=== PATIENT | female | born 1975 | race Caucasian/White ===

== ENCOUNTER 2016-10-11 19:20 | Observation (INO) | payer OTHER ==
[~2016-10-11] VITALS: Ht 165.1 cm; Wt 66.0 kg
[~2016-10-11 19:20] MED LIST: FLUO20CA12 PO; HYDR-3801 PO; QUET1TAB10 PO; QUET1TAB8 PO; SENN1TAB PO; TYLE325T PO
[2016-10-11 19:23] VITALS: BP 145/77; PULSE 87; RESP 16; TEMP 98.8; O2SAT 97
[2016-10-11] MEDS ORDERED: HALOPERIDOL LACTATE 5 MG/ML AMP IM ONE (20:00)
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
[2016-10-11 20:47] VITALS: BP 122/76; PULSE 79; RESP 16; O2SAT 96
[2016-10-11] MEDS ORDERED: SENNOSIDES 8.6 MG TAB PO PRN (21:15)
[2016-10-11] MEDS ORDERED: MAGNESIUM HYDROXIDE SUSP 30 ML CUP PO PRN (21:15)
[2016-10-11] MEDS ORDERED: NALOXONE HCL 0.4 MG/ML AMP IV PRN (21:15)
[2016-10-11] MEDS ORDERED: HALOPERIDOL LACTATE 5 MG/ML AMP IM PRN (21:15)
[2016-10-11] MEDS ORDERED: SODIUM CHLORIDE 0.9% FLUSH 10 ML FLUSH IV FLUSH PRN (21:15)
[2016-10-11] MEDS ORDERED: BISACODYL 10 MG SUPP RECTAL PRN (21:15)
[2016-10-11] MEDS ORDERED: LACTULOSE SYRUP 20 GM/30 ML CUP PO PRN (21:15)
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
[2016-10-11] MEDS: hydrALAZINE HCL 10 MG TAB PO SCH (23:01)
[2016-10-12 00:33] VITALS: BP 148/81; PULSE 87; RESP 18; TEMP 98.1; O2SAT 98
[2016-10-12 04:24] VITALS: BP 139/80; PULSE 87; RESP 18; TEMP 98; O2SAT 98
[2016-10-12] MEDS: hydrALAZINE HCL 10 MG TAB PO SCH ×3 (05:42→17:29)
[2016-10-12 07:34] VITALS: BP 118/80; PULSE 66; RESP 18; TEMP 98.2; O2SAT 98
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
[2016-10-12] MEDS: SODIUM CHLORIDE 0.9% FLUSH 10 ML FLUSH IV FLUSH SCH ×2 (08:18→20:08)
[2016-10-12] MEDS: DOCUSATE SODIUM 50 MG/SENNA 8.6 MG TAB PO SCH ×2 (08:19→20:12)
[2016-10-12] MEDS: QUEtiapine FUMARATE 100 MG TAB PO SCH ×2 (08:19→15:17)
[2016-10-12] MEDS: FLUoxetine HCL 20 MG CAP PO SCH (08:19)
[2016-10-12] MEDS ORDERED: DOCUSATE SODIUM 50 MG/SENNA 8.6 MG TAB PO SCH (09:00)
[2016-10-12 11:07] LABS: BICARBONATE 25.1 MEQ/L (21.0-32.0); POTASSIUM 4.4 MEQ/L (3.5-5.1)
[2016-10-12 11:54] VITALS: BP 121/71; PULSE 82; RESP 16; TEMP 98.7; O2SAT 98
[2016-10-12] MEDS: ACETAMINOPHEN 325 MG TAB PO PRN ×2 (12:21→20:12)
[2016-10-12 15:51] VITALS: BP 126/72; PULSE 77; RESP 18; TEMP 98.6; O2SAT 98
[2016-10-12 20:01] VITALS: BP 130/77; PULSE 76; RESP 17; TEMP 98.2; O2SAT 97
[2016-10-12] MEDS ORDERED: QUEtiapine FUMARATE 300 MG TAB PO SCH (21:00)
[2016-10-13] MEDS: hydrALAZINE HCL 10 MG TAB PO SCH ×2 (00:11→05:14)
[2016-10-13 01:28] VITALS: BP 138/75; PULSE 74; RESP 16; TEMP 98.6; O2SAT 97
[2016-10-13 04:24] VITALS: BP 122/70; PULSE 67; RESP 16; TEMP 98.2; O2SAT 98
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
--- NOTE | 2016-10-13 07:44 | HHI.DCPOC ---
Discharge Care Plan Diagnosis: (1) Impaired cognition (2) Traumatic brain injury Goals to Promote Your Health * To prevent worsening of your condition and complications * To maintain your health at the optimal level Directions to Meet Your Goals Take your medications as prescribed Follow your dietary instruction Follow activity as directed Keep your appointments as scheduled Take your immunizations and boosters as scheduled If your symptoms worsen call your PCP, if no PCP go to Urgent Care Center or Emergency Room Smoking is Dangerous to Your Health. Avoid second hand smoke Call the 24-hour hour crisis hotline for domestic abuse at [place] Oct 13, 2016 07:44
[2016-10-13] MEDS: QUEtiapine FUMARATE 100 MG TAB PO SCH (08:39)
[2016-10-13] MEDS: DOCUSATE SODIUM 50 MG/SENNA 8.6 MG TAB PO SCH (08:40)
[2016-10-13] MEDS: SODIUM CHLORIDE 0.9% FLUSH 10 ML FLUSH IV FLUSH SCH (08:40)
[2016-10-13] MEDS: FLUoxetine HCL 20 MG CAP PO SCH (08:40)
[2016-10-13] MEDS: ACETAMINOPHEN 325 MG TAB PO PRN (08:45)
[2016-10-13 08:46] VITALS: BP 145/97; PULSE 87; RESP 18; TEMP 97.4; O2SAT 95
[2016-11-13] MEDS ORDERED: SERO25TA PO (12:58)
[2016-11-13] MEDS ORDERED: MELA1TAB18 PO (12:58)
== END 2016-10-13 11:33 | disposition home or self-care (01) ==
LOC: NEPC 19:20 → NEDA 20:26 → NEPGCP 22:15
PROVIDERS: ADMIT Hospitalist; ATTEND Hospitalist
DX: R41.89 Other symptoms and signs involving cognitive functions and awareness (principal); S06.9X9D Unspecified intracranial injury with loss of consciousness of unspecified duration, subsequent encounter; S42.001D Fracture of unspecified part of right clavicle, subsequent encounter for fracture with routine healing; R26.9 Unspecified abnormalities of gait and mobility
CPT/HCPCS: 29125; 80048; 96374; 96376; 99285; G0378; J1630

== ENCOUNTER 2017-05-30 10:10 | Emergency (ER) | payer MEDICAID, OTHER ==
[~2017-05-30] VITALS: Ht 162.6 cm; Wt 63.5 kg
[~2017-05-30 10:10] MED LIST changes: -FLUO20CA12 PO; +MELA1TAB18 PO; -QUET1TAB10 PO; -QUET1TAB8 PO; -SENN1TAB PO; +SERO25TA PO
[2017-05-30 10:31] VITALS: BP 164/88; PULSE 70; RESP 16; TEMP 98.6; O2SAT 100
[2017-05-30] MEDS ORDERED: GABA300C5 PO ×2 (11:14→11:38)
[2017-05-30] MEDS ORDERED: SERO100T PO (11:14)
[2017-05-30] MEDS ORDERED: PROP60TA PO ×2 (11:14→11:38)
[2017-05-30] MEDS ORDERED: SERO200T PO (11:14)
[2017-05-30] MEDS ORDERED: SERO300T PO (11:14)
[2017-05-30] MEDS ORDERED: QUET1TAB10 PO (11:38)
[2017-05-30] MEDS ORDERED: QUET1TAB9 PO (11:38)
--- NOTE | 2017-05-30 11:50 | PD ---
HPI Chief Complaint: Medication Refill Request Time Seen by Provider: 11:26 Travel History International Travel<30 days: No Contact w/Intl Traveler<30days: No Traveled to known affect area: No History of Present Illness HPI 42-year-old female with history of traumatic brain injury presents to the emergency room requesting medication refills. Patient states she recently changed insurance from [facility] to Medicaid and her [facility] doctors do not accept Medicaid. She has enough Seroquel, gabapentin , and propanolol for the next few days but then will run out. She has not missed any dose at this time. She has made an appointment at the [facility] for continued care but her appointment is not until July 06. PFSH Past Medical History Autoimmune Disease: No Anxiety: Yes (per son ) Depression: No Heart Rhythm Problems: No Cancer: No Cardiovascular Problems: Yes High Cholesterol: No Chest Pain: No Congestive Heart Failure: No Cerebrovascular Accident: No Endocrine: No Gastrointestinal Disorders: No Genitourinary: No Headaches: Yes Heparin Induced Thrombocytopen: No Hypertension: No Immune Disorder: No Implanted Vascular Access Dvce: No Musculoskeletal: No Neurologic: Yes Psychiatric: Yes (Bipolar (Per son)) Reproductive: No Respiratory: No Immunizations Current: Yes Migraines: No Seizures: No Sickle Cell Disease: No Past Surgical History Abdominal Surgery: No Cardiac Surgery: Yes (Aortic arch repair as child ) Ear Surgery: No Endocrine Surgery: No Eye Surgery: No Genitourinary Surgery: No Gynecologic Surgery: Yes () Neurologic Surgery: No Oral Surgery: No (dentures upper and lower) Thoracic Surgery: No Other Surgery: Yes Social History Alcohol Use: Yes Tobacco Use: Yes Substance Use: No Allergies-Medications (Allergen,Severity, Reaction): Coded Allergies: penicillin G (Unverified Allergy, Severe, 05/30/17) Reported Meds & Prescriptions Reported Meds & Active Scripts Active Propranolol (Propranolol HCl) 60 Mg Tab 60 Mg PO Q12HR Quetiapine (Quetiapine Fumarate) 300 Mg Tab 300 Mg PO HS Quetiapine (Quetiapine Fumarate) 200 Mg Tab 100 Mg PO BID Gabapentin 300 Mg Cap 300 Mg PO Q6HR Reported Propranolol (Propranolol HCl) 60 Mg Tab 60 Mg PO Q12HR Gabapentin 300 Mg Cap 300 Mg PO QID Seroquel (Quetiapine Fumarate) 100 Mg Tab 100 Mg PO HS Seroquel (Quetiapine Fumarate) 200 Mg Tab 200 Mg PO AFTERNOON Seroquel (Quetiapine Fumarate) 300 Mg Tab 300 Mg PO DAILYAC Review of Systems Except as stated in HPI: all other systems reviewed are Neg Physical Exam Narrative GENERAL: Well-nourished, well-developed female no acute distress. Afebrile. Ambulatory. SKIN: Focused skin assessment warm/dry. HEAD: Normocephalic. EYES: No scleral icterus. No injection or drainage. NECK: Supple, trachea midline. No JVD or lymphadenopathy. CARDIOVASCULAR: Regular rate and rhythm without murmurs, gallops, or rubs. RESPIRATORY: Breath sounds equal bilaterally. No accessory muscle use. PSYCHIATRIC: No delusional thought processes. No hallucinations. Data Data Last Documented VS Vital Signs Date Time Temp Pulse Resp B/P (MAP) Pulse Ox O2 Delivery O2 Flow Rate FiO2 05/30/17 10:31 98.6 70 16 164/88 (113) 100 MDM Medical Decision Making Medical Screen Exam Complete: Yes Emergency Medical Condition: Yes Medical Record Reviewed: Yes Differential Diagnosis Medication refill, noncompliance, traumatic brain injury Narrative Course 42-year-old female presents to the emergency room for medication refill. Patient has history of traumatic brain injury for which she takes Seroquel. She also takes gabapentin for chronic pain due to previous trauma. States she will run out of her medications in a few days and her previous primary care physician will not fill them because her insurance recently changed. She does have an appointment with the [facility] to follow-up but it is not for another month. Patient will be given 1 month dose of all of her medications. She was encouraged to follow-up with [facility] and call for an earlier appointment if possible. She understands and agrees to plan. Diagnosis Primary Impression: Medication refill Referrals: [facility] Additional Instructions: Call [facility] to try to move up your appointment so your medications do not run out next month. Med/Other Pt SpecificInfo: Prescription(s) given Scripts Propranolol (Propranolol) 60 Mg Tab 60 MG PO Q12HR, #60 TAB 0 Refills Prov: Liliane Bella MD 05/30/17 Quetiapine (Quetiapine) 300 Mg Tab 300 MG PO HS, #30 TAB 0 Refills Prov: Liliane Bella MD 05/30/17 Quetiapine (Quetiapine) 200 Mg Tab 100 MG PO BID, #15 TAB 0 Refills Prov: Liliane Bella MD 05/30/17 Gabapentin (Gabapentin) 300 Mg Cap 300 MG PO Q6HR, #120 CAP 0 Refills Prov: Liliane Bella MD 05/30/17 Disposition: 01 DISCHARGE HOME Condition: Stable Katerina Slaughter May 30, 2017 11:50
== END 2017-05-30 11:57 | disposition home or self-care (01) ==
LOC: NEPK 10:10
DX: G89.29 Other chronic pain (principal); Z76.0 Encounter for issue of repeat prescription
CPT/HCPCS: 99281

== ENCOUNTER 2017-07-05 11:06 | Emergency (ER) | payer MEDICAID ==
[~2017-07-05] VITALS: Ht 162.6 cm; Wt 62.0 kg
[~2017-07-05 11:06] MED LIST changes: +GABA300C5 PO; -HYDR-3801 PO; -MELA1TAB18 PO; +PROP60TA PO; +QUET1TAB10 PO; +QUET1TAB9 PO; +SERO100T PO; +SERO200T PO; -SERO25TA PO; +SERO300T PO; -TYLE325T PO
[2017-07-05 11:16] VITALS: BP 140/80; PULSE 57; RESP 16; TEMP 98.9; O2SAT 99
[2017-07-05] MEDS ORDERED: PROP60TA PO (11:57)
[2017-07-05] MEDS ORDERED: QUET1TAB9 PO (11:57)
[2017-07-05] MEDS ORDERED: GABA300C5 PO (11:57)
[2017-07-05] MEDS ORDERED: QUET1TAB10 PO (11:57)
--- NOTE | 2017-07-05 11:59 | PD ---
HPI Chief Complaint: Medication Refill Request Time Seen by Provider: 11:35 Travel History International Travel<30 days: No Contact w/Intl Traveler<30days: No Traveled to known affect area: No History of Present Illness HPI 42-year-old female with history of traumatic brain injury presents the ED requesting medication refills. Patient states that she had a follow-up appointment with the [facility] after an insurance change but when she called today to confirm the appointment she was told that the doctor is out of town for 1 week. She states that she has medications that will last until tomorrow, she has not missed any doses of medications. She has no somatic complaints. PFSH Past Medical History Autoimmune Disease: No Anxiety: Yes (per son ) Depression: No Heart Rhythm Problems: No Cancer: No Cardiovascular Problems: Yes High Cholesterol: No Chest Pain: No Congestive Heart Failure: No Cerebrovascular Accident: No Endocrine: No Gastrointestinal Disorders: No Genitourinary: No Headaches: Yes Heparin Induced Thrombocytopen: No Hypertension: No Immune Disorder: No Implanted Vascular Access Dvce: No Musculoskeletal: No Neurologic: Yes Psychiatric: Yes (Bipolar (Per son)) Reproductive: No Respiratory: No Immunizations Current: Yes Migraines: No Seizures: No Sickle Cell Disease: No Past Surgical History Abdominal Surgery: No Cardiac Surgery: Yes (Aortic arch repair as child ) Ear Surgery: No Endocrine Surgery: No Eye Surgery: No Genitourinary Surgery: No Gynecologic Surgery: Yes () Neurologic Surgery: No Oral Surgery: No (dentures upper and lower) Thoracic Surgery: No Other Surgery: Yes Social History Alcohol Use: Yes Tobacco Use: Yes Substance Use: No Allergies-Medications (Allergen,Severity, Reaction): Coded Allergies: penicillin G (Unverified Allergy, Severe, 07/05/17) Reported Meds & Prescriptions Reported Meds & Active Scripts Active Propranolol (Propranolol HCl) 60 Mg Tab 60 Mg PO Q12HR Quetiapine (Quetiapine Fumarate) 300 Mg Tab 300 Mg PO HS Quetiapine (Quetiapine Fumarate) 200 Mg Tab 100 Mg PO BID Gabapentin 300 Mg Cap 300 Mg PO Q6HR Reported Seroquel (Quetiapine Fumarate) 100 Mg Tab 100 Mg PO HS Seroquel (Quetiapine Fumarate) 200 Mg Tab 200 Mg PO AFTERNOON Seroquel (Quetiapine Fumarate) 300 Mg Tab 300 Mg PO DAILYAC Review of Systems Except as stated in HPI: all other systems reviewed are Neg Physical Exam Narrative GENERAL: Well-nourished, well-developed white female in no acute distress. SKIN: Focused skin assessment warm/dry. HEAD: Normocephalic. EYES: No scleral icterus. No injection or drainage. NECK: Supple, trachea midline. No JVD or lymphadenopathy. CARDIOVASCULAR: Regular rate and rhythm without murmurs, gallops, or rubs. RESPIRATORY: Breath sounds equal bilaterally. No accessory muscle use. GASTROINTESTINAL: Abdomen soft, non-tender, nondistended. MUSCULOSKELETAL: No cyanosis, or edema. BACK: Nontender without obvious deformity. No CVA tenderness. Data Data Last Documented VS Vital Signs Date Time Temp Pulse Resp B/P (MAP) Pulse Ox O2 Delivery O2 Flow Rate FiO2 07/05/17 11:16 98.9 57 16 140/80 (100) 99 MDM Medical Decision Making Medical Screen Exam Complete: Yes Emergency Medical Condition: Yes Differential Diagnosis Encounter for medication refill versus TBI versus MSE versus other Narrative Course 42-year-old female with PMH of TBI presents the ED requesting medication refills. Patient had plan to see [facility] tomorrow but this appointment was changed and she runs out of medication on the . No somatic complaints. Vitals reviewed. Physical exam is unremarkable. Patient's medications were refilled with 1 month supply. She is instructed to follow with the [facility] clinic as planned. She is stable and discharged home. Diagnosis Primary Impression: Encounter for medication refill Referrals: [facility] Additional Instructions: Take medication as prescribed. Follow with the [facility] as planned. Return to the ED for any urgent or emergent medical condition. Med/Other Pt SpecificInfo: Prescription(s) given Scripts Propranolol (Propranolol) 60 Mg Tab 60 MG PO Q12HR, #60 TAB 0 Refills Prov: José Raymundo MD 07/05/17 Quetiapine (Quetiapine) 300 Mg Tab 300 MG PO HS, #30 TAB 0 Refills Prov: José Raymundo MD 07/05/17 Quetiapine (Quetiapine) 200 Mg Tab 100 MG PO BID, #15 TAB 0 Refills Prov: José Raymundo MD 07/05/17 Gabapentin (Gabapentin) 300 Mg Cap 300 MG PO Q6HR, #120 CAP 0 Refills Prov: José Raymundo MD 07/05/17 Disposition: 01 DISCHARGE HOME Condition: Stable Lisa Roa July 05, 2017 11:59
== END 2017-07-05 13:14 | disposition home or self-care (01) ==
LOC: NEPK 11:06
DX: F41.9 Anxiety disorder, unspecified (principal); Z76.0 Encounter for issue of repeat prescription; Z87.820 Personal history of traumatic brain injury
CPT/HCPCS: 99281

== ENCOUNTER 2017-07-12 10:57 | Observation (INO) | payer MEDICAID ==
[2017-07-12] VITALS (9 sets, daily range): BP systolic 97–186; BP diastolic 54–114; PULSE 50–79; RESP 16–24; TEMP 98.3–98.9; O2SAT 93–100
[~2017-07-12] VITALS: Ht 165.1 cm; Wt 61.5 kg
[2017-07-12] MEDS ORDERED: SODIUM CHLORIDE 0.9% FLUSH 10 ML FLUSH IVF PRN (11:30)
[2017-07-12] MEDS ORDERED: ASPIRIN 325 MG TAB PO ONE (11:30)
[2017-07-12] MEDS ORDERED: NITROGLYCERIN 0.4 MG SL 25 TABS/BTL SL ONE (11:30)
--- NOTE | 2017-07-12 11:30 | PD ---
HPI Chief Complaint: Chest Pain Time Seen by Provider: 11:14 Travel History International Travel<30 days: No Contact w/Intl Traveler<30days: No Traveled to known affect area: No History of Present Illness HPI 42-year-old female that presents to the ED for evaluation of chest pain throughout his the right side for the past 2-3 days. Per patient is being ongoing for some time but is been more severe and significant for the past 3-4 days. She denies any history of ACS on herself but she does smoke has a history of hypertension. She denies any trauma. She denies any cough or runny nose. No fevers chills or sweats. No nausea or vomiting. Per patient the pain feels more like a pressure like something sitting on her chest and is 6 out of 10. Denies any numbness, tingling, weakness. Nothing seems to make it better or worse. Comes on its own. She does tell me that she has a history of heart surgery when she was young but she does not know what the surgery was specifically about. She states that she has not taken anything for this. No other medical issues. She does have primary care doctor through [facility]. Allergy to penicillin. PFSH Past Medical History Autoimmune Disease: No Anxiety: Yes Depression: No Heart Rhythm Problems: No Cancer: No Cardiovascular Problems: Yes High Cholesterol: No Chest Pain: No Congestive Heart Failure: No Cerebrovascular Accident: No Endocrine: No Gastrointestinal Disorders: No Genitourinary: No Headaches: Yes Heparin Induced Thrombocytopen: No Hypertension: Yes Immune Disorder: No Implanted Vascular Access Dvce: No Musculoskeletal: No Neurologic: Yes Psychiatric: Yes (Bipolar (Per son)) Reproductive: No Respiratory: No Immunizations Current: Yes Migraines: No Seizures: No Sickle Cell Disease: No ?: Unknown LMP: june 20 Past Surgical History Abdominal Surgery: No Cardiac Surgery: Yes (Aortic arch repair as child ) Section: Yes Ear Surgery: No Endocrine Surgery: No Eye Surgery: No Genitourinary Surgery: No Gynecologic Surgery: Yes () Neurologic Surgery: No Thoracic Surgery: No Tonsillectomy: Yes Other Surgery: Yes Social History Alcohol Use: No Tobacco Use: Yes Substance Use: No Allergies-Medications (Allergen,Severity, Reaction): Coded Allergies: penicillin G (Verified Allergy, Severe, 07/12/17) Reported Meds & Prescriptions Reported Meds & Active Scripts Active Propranolol (Propranolol HCl) 60 Mg Tab 60 Mg PO Q12HR Gabapentin 300 Mg Cap 300 Mg PO Q6HR Review of Systems Except as stated in HPI: all other systems reviewed are Neg Physical Exam Narrative GENERAL: SKIN: Warm and dry. HEAD: Atraumatic. Normocephalic. EYES: Pupils equal and round. No scleral icterus. No injection or drainage. ENT: No nasal bleeding or discharge. Mucous membranes pink and moist. Tongue is midline. No uvula deviation. NECK: Trachea midline. No JVD. CARDIOVASCULAR: Regular rate and rhythm. No murmurs, S3, S4. RESPIRATORY: No accessory muscle use. Clear to auscultation. Breath sounds equal bilaterally. GASTROINTESTINAL: Abdomen soft, non-tender, nondistended. Hepatic and splenic margins not palpable. MUSCULOSKELETAL: Extremities without clubbing, cyanosis, or edema. No obvious deformities. Full range of motion of the upper and lower extremities bilaterally. 2+ pulses bilaterally. NEUROLOGICAL: Awake and alert. No obvious cranial nerve deficits. Motor grossly within normal limits. Five out of 5 muscle strength in the arms and legs. Normal speech. PSYCHIATRIC: Appropriate mood and affect; insight and judgment normal. Data Data Last Documented VS Vital Signs Date Time Temp Pulse Resp B/P (MAP) Pulse Ox O2 Delivery O2 Flow Rate FiO2 07/12/17 11:28 77 20 160/104 (122) 100 139/74 (95) 07/12/17 11:25 Room Air 07/12/17 11:05 98.3 Orders Orders Electrocardiogram (07/12/17 11:21) Ckmb (Isoenzyme) Profile (07/12/17 11:21) Complete Blood Count With Diff (07/12/17 11:21) Comprehensive Metabolic Panel (07/12/17 11:21) Magnesium (Mg) (07/12/17 11:21) Prothrombin Time / Inr (Pt) (07/12/17 11:21) Act Partial Throm Time (Ptt) (07/12/17 11:21) Troponin I (07/12/17 11:21) Lipase (07/12/17 11:21) Chest, Single Ap (07/12/17 11:21) Ecg Monitoring (07/12/17 11:21) Bilateral Bp Monitoring (07/12/17 11:21) Iv Access Insert/Monitor (07/12/17 11:21) Oximetry (07/12/17 11:21) Oxygen Administration (07/12/17 11:21) Aspirin (Aspirin) (07/12/17 11:30) Sodium Chloride 0.9% Flush (Ns Flush) (07/12/17 11:30) Nitroglycerin Sl (Nitrostat Sl) (07/12/17 11:30) Ct Thorax/ Chest W Iv Contrast (07/12/17 ) CKMB (07/12/17 11:30) CKMB% (07/12/17 11:30) Iohexol 350 Inj (Omnipaque 350 Inj) (07/12/17 13:16) Admit Order (Ed Use Only) (07/12/17 13:47) Labs Laboratory Tests Test 07/12/17 11:30 White Blood Count 6.7 TH/MM3 Red Blood Count 4.64 MIL/MM3 Hemoglobin 14.0 GM/DL Hematocrit 41.7 % Mean Corpuscular Volume 89.9 FL Mean Corpuscular Hemoglobin 30.2 PG Mean Corpuscular Hemoglobin Concent 33.6 % Red Cell Distribution Width 13.2 % Platelet Count 202 TH/MM3 Mean Platelet Volume 10.1 FL Neutrophils (%) (Auto) 56.8 % Lymphocytes (%) (Auto) 34.4 % Monocytes (%) (Auto) 7.0 % Eosinophils (%) (Auto) 1.4 % Basophils (%) (Auto) 0.4 % Neutrophils # (Auto) 3.8 TH/MM3 Lymphocytes # (Auto) 2.3 TH/MM3 Monocytes # (Auto) 0.5 TH/MM3 Eosinophils # (Auto) 0.1 TH/MM3 Basophils # (Auto) 0.0 TH/MM3 CBC Comment DIFF FINAL Differential Comment Prothrombin Time 11.4 SEC Prothromb Time International Ratio 1.1 RATIO Activated Partial Thromboplast Time 25.4 SEC Blood Urea Nitrogen 7 MG/DL Creatinine 1.02 MG/DL Random Glucose 78 MG/DL Total Protein 7.4 GM/DL Albumin 3.8 GM/DL Calcium Level 9.2 MG/DL Magnesium Level 2.1 MG/DL Alkaline Phosphatase 111 U/L Aspartate Amino Transf (AST/SGOT) 41 U/L Alanine Aminotransferase (ALT/SGPT) 24 U/L Total Bilirubin 0.4 MG/DL Sodium Level 138 MEQ/L Potassium Level 4.4 MEQ/L Chloride Level 100 MEQ/L Carbon Dioxide Level 25.7 MEQ/L Anion Gap 12 MEQ/L Estimat Glomerular Filtration Rate 60 ML/MIN Total Creatine Kinase 117 U/L Creatine Kinase MB 1.0 NG/ML Troponin I LESS THAN 0.02 NG/ML Lipase 30 U/L [facility] Medical Decision Making Medical Screen Exam Complete: Yes Emergency Medical Condition: Yes Medical Record Reviewed: Yes Interpretation(s) CBC & BMP Diagram 07/12/17 11:30 Total Protein 7.4, Albumin 3.8, Calcium Level 9.2, Magnesium Level 2.1, Alkaline Phosphatase 111, Aspartate Amino Transf (AST/SGOT) 41 H, Alanine Aminotransferase (ALT/SGPT) 24, Total Bilirubin 0.4 troponin and CKMB negative Last Impressions Chest X-Ray 07/12/17 1121 Signed Impressions: CONCLUSION: 1. No definite acute finding is identified to explain the chest pain. 2. Prominent right paratracheal opacity may represent vascular structures. A c hest CT with IV contrast is currently pending and attention can be paid to this finding on that examination. Chest CT 07/12/17 0000 Signed Impressions: CONCLUSION: There are COPD changes in the tiny left lung base nodule most like ly benign, repeat noncontrast chest CT is suggested in 6 months as a conservati ve follow up. EKG shows sinus rhythm with no sign of acute ischemia or arrythmia read by me and attending. Differential Diagnosis ACS versus chest pain versus typical chest pain versus pneumonia versus pancreatitis Narrative Course 42-year-old female that presents to the ED for evaluation of of chest pain. Patient was properly examined and was found to have signs and symptoms concerning for chest pain. Concerning for ACS. Labs and imaging ordered. Given aspirin and nitroglycerin. Labs and imaging showed no sign of acute disease. This time a recommend admission for further evaluation. Patient agrees with this. Patient was admitted to the chest pain center. My attending Dr. Young was made aware of findings and agrees with plan. Diagnosis Primary Impression: Chest pain in adult Admitting Information Admitting Physician Requests: Observation Michael Beltran Jul 12, 2017 11:30
[2017-07-12 11:38] LABS: AUTOMATED NEUTROPHIL # 3.8 TH/MM3 (1.8-7.7); BASOPHIL % 0.4 % (0.0-2.0); EOSINOPHIL # 0.1 TH/MM3 (0-0.4); EOSINOPHIL % 1.4 % (0.0-4.0); HEMATOCRIT 41.7 % (35.0-46.0); LYMPH % 34.4 % (9.0-44.0); LYMPHOCYTE # 2.3 TH/MM3 (1.0-4.8); MEAN CELL VOLUME 89.9 FL (80.0-100.0); MEAN CORPUSCULAR HEMOGLOBIN 30.2 PG (27.0-34.0); MEAN CORPUSCULAR HGB CONC 33.6 % (32.0-36.0); MEAN PLATELET VOLUME 10.1 FL (7.0-11.0); MONOCYTE # 0.5 TH/MM3 (0-0.9); NEUT % 56.8 % (16.0-70.0); PLATELET COUNT 202 TH/MM3 (150-450); RED BLOOD COUNT 4.64 MIL/MM3 (4.00-5.30); RED CELL DISTRIBUTION WIDTH 13.2 % (11.6-17.2); WHITE BLOOD COUNT 6.7 TH/MM3 (4.0-11.0)
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
[2017-07-12 11:48] LABS: INTERNATIONAL NORMALIZED RATIO 1.1 RATIO; PROTHROMBIN TIME - PATIENT 11.4 SEC (9.8-11.6)
[2017-07-12 12:12] LABS: ALBUMIN 3.8 GM/DL (3.4-5.0); ALT (GPT) 24 U/L (10-53); BICARBONATE 25.7 MEQ/L (21.0-32.0); BLOOD UREA NITROGEN 7 MG/DL (7-18); CALCIUM 9.2 MG/DL (8.5-10.1); CHLORIDE 100 MEQ/L (98-107); CREATININE 1.02 MG/DL (0.50-1.00); GLOMERULAR FILTRATION RATE 60 ML/MIN (>89); GLUCOSE,RANDOM 78 MG/DL (74-106); MAGNESIUM 2.1 MG/DL (1.5-2.5); SODIUM (NA) 138 MEQ/L (136-145)
[2017-07-12 12:13] LABS: AST (GOT) 41 U/L (15-37)
[2017-07-12 12:17] LABS: ALKALINE PHOSPHATASE 111 U/L (45-117); TOTAL BILIRUBIN ADULT 0.4 MG/DL (0.2-1.0); TOTAL PROTEIN 7.4 GM/DL (6.4-8.2); TROPONIN I LESS THAN 0.02 NG/ML (0.02-0.05)
[2017-07-12] MEDS ORDERED: IOHEXOL 350 MG/ML 10 ML VIAL (for RAD DIAG) IVCONTRAST ONE (13:16)
--- NOTE | 2017-07-12 13:33 | RADRPT ---
EXAM DATE: 07/12/2017 1:26 PM EDT AGE/SEX: 42 years / Female INDICATIONS: Worsening intermittent chest pain that sometimes radiates down right upper arm. CLINICAL DATA: This is the patient's initial encounter. Patient reports that signs and symptoms have been present for 2 weeks and indicates a pain score of 4/10. MEDICAL/SURGICAL HISTORY: Hypertension. section. Breast augmentation. Open heart surgery x 2 as a child to repair aortic arch. RADIATION DOSE: 5.61 CTDI (mGy) COMPARISON: No prior [place] exams available for comparison. TECHNIQUE: Multiple contiguous axial images were obtained through the chest during bolus infusion of 70 ml Omnipaque 350 (iohexol) nonionic water-soluble contrast as a single exam dose. Images were obtained in suspended respiration using multiple row detector helical technique. Using automated exp osure control and adjustment of the mA and/or kV according to patient size, radiation dose was kept a s low as reasonably achievable to obtain optimal diagnostic quality images. FINDINGS: There is a tiny 4 mm nodule left lower lobe laterally. COPD changes are seen. There is no pleural eff usion. No appreciable pathological adenopathy is seen within the mediastinum. There are tiny lymph n odes within the mediastinum and bilateral hilum benign in appearance. Right sided aortic arch is seen . CONCLUSION: There are COPD changes in the tiny left lung base nodule most likely benign, repeat nonc ontrast chest CT is suggested in 6 months as a conservative follow up. Electronically signed by: Terri Castañeda MD 07/12/2017 1:32 PM EDT
--- NOTE | 2017-07-12 14:21 | PD ---
Data Data Last Documented VS Vital Signs Date Time Temp Pulse Resp B/P (MAP) Pulse Ox O2 Delivery O2 Flow Rate FiO2 07/12/17 11:28 77 20 160/104 (122) 100 139/74 (95) 07/12/17 11:25 Room Air 07/12/17 11:05 98.3 Orders Orders Electrocardiogram (07/12/17 11:21) Ckmb (Isoenzyme) Profile (07/12/17 11:21) Complete Blood Count With Diff (07/12/17 11:21) Comprehensive Metabolic Panel (07/12/17 11:21) Magnesium (Mg) (07/12/17 11:21) Prothrombin Time / Inr (Pt) (07/12/17 11:21) Act Partial Throm Time (Ptt) (07/12/17 11:21) Troponin I (07/12/17 11:21) Lipase (07/12/17 11:21) Chest, Single Ap (07/12/17 11:21) Ecg Monitoring (07/12/17 11:21) Bilateral Bp Monitoring (07/12/17 11:21) Iv Access Insert/Monitor (07/12/17 11:21) Oximetry (07/12/17 11:21) Oxygen Administration (07/12/17 11:21) Aspirin (Aspirin) (07/12/17 11:30) Sodium Chloride 0.9% Flush (Ns Flush) (07/12/17 11:30) Nitroglycerin Sl (Nitrostat Sl) (07/12/17 11:30) Ct Thorax/ Chest W Iv Contrast (07/12/17 ) CKMB (07/12/17 11:30) CKMB% (07/12/17 11:30) Iohexol 350 Inj (Omnipaque 350 Inj) (07/12/17 13:16) Admit Order (Ed Use Only) (07/12/17 13:47) Labs Laboratory Tests Test 07/12/17 11:30 White Blood Count 6.7 TH/MM3 Red Blood Count 4.64 MIL/MM3 Hemoglobin 14.0 GM/DL Hematocrit 41.7 % Mean Corpuscular Volume 89.9 FL Mean Corpuscular Hemoglobin 30.2 PG Mean Corpuscular Hemoglobin Concent 33.6 % Red Cell Distribution Width 13.2 % Platelet Count 202 TH/MM3 Mean Platelet Volume 10.1 FL Neutrophils (%) (Auto) 56.8 % Lymphocytes (%) (Auto) 34.4 % Monocytes (%) (Auto) 7.0 % Eosinophils (%) (Auto) 1.4 % Basophils (%) (Auto) 0.4 % Neutrophils # (Auto) 3.8 TH/MM3 Lymphocytes # (Auto) 2.3 TH/MM3 Monocytes # (Auto) 0.5 TH/MM3 Eosinophils # (Auto) 0.1 TH/MM3 Basophils # (Auto) 0.0 TH/MM3 CBC Comment DIFF FINAL Differential Comment Prothrombin Time 11.4 SEC Prothromb Time International Ratio 1.1 RATIO Activated Partial Thromboplast Time 25.4 SEC Blood Urea Nitrogen 7 MG/DL Creatinine 1.02 MG/DL Random Glucose 78 MG/DL Total Protein 7.4 GM/DL Albumin 3.8 GM/DL Calcium Level 9.2 MG/DL Magnesium Level 2.1 MG/DL Alkaline Phosphatase 111 U/L Aspartate Amino Transf (AST/SGOT) 41 U/L Alanine Aminotransferase (ALT/SGPT) 24 U/L Total Bilirubin 0.4 MG/DL Sodium Level 138 MEQ/L Potassium Level 4.4 MEQ/L Chloride Level 100 MEQ/L Carbon Dioxide Level 25.7 MEQ/L Anion Gap 12 MEQ/L Estimat Glomerular Filtration Rate 60 ML/MIN Total Creatine Kinase 117 U/L Creatine Kinase MB 1.0 NG/ML Troponin I LESS THAN 0.02 NG/ML Lipase 30 U/L MDM Supervised Visit with AVINASH: Yes Narrative Course I, Dr. Young, have reviewed the advance practice practitioner's documentation and am in agreement, met with the patient face to face, made the diagnosis, and the medical decision making was done by me. *My assessment and Findings: I have evaluated the patient. I reviewed the workup with her. She has multiple risk factors and chest pain. I discussed that her physician not to repeat imaging of her chest in 6 months to evaluate the pulmonary nodule which is an incidental finding. She will be observed on telemetry for chest pain. Diagnosis Primary Impression: Chest pain in adult Sumit Young MD Jul 12, 2017 14:21
[2017-07-12] MEDS ORDERED: ONDANSETRON ODT 4 MG TAB PO PRN (14:30)
[2017-07-12] MEDS ORDERED: ACETAMINOPHEN/HYDROcodone 325 MG/7.5 MG TAB PO PRN (14:30)
[2017-07-12] MEDS ORDERED: ALPRAZolam 0.25 MG TAB PO PRN (14:30)
[2017-07-12] MEDS ORDERED: ACETAMINOPHEN 500 MG CPLT PO PRN (14:30)
--- NOTE | 2017-07-12 15:54 | HHI.HP ---
[facility] Primary Care Physician Cecil Barber MD (Paul) Chief Complaint Chest pain History of Present Illness This is a 42-year-old female the presents to ED via private vehicle with clinical right-sided chest discomfort that has been intermittent for 2 weeks. Initially was occurring about every other day. Nothing in particular seemed to bring on the discomfort. She describes it as "uncomfortable." She at times short of breath. Denies nausea or diaphoresis. She states symptoms change last couple days. Became more frequently. The last 2 days has been having on average twice a day. Again nothing in particular seems to bring on the discomfort. Not exertional. Denies history of CAD but cannot recall having cardiac workup in the past. History of traumatic brain injury about a year ago and states she is disabled from that. Currently denies chest discomfort. Review of Systems General: Patient denies fevers, chills, and recent travel. HEENT: Patient denies headache, sore throat, difficulty swallowing. Cardiovascular: Has the chest discomfort as mentioned above. Denies sensation of heart beating rapidly or irregularly. No syncope. Denies diaphoresis. Respiratory: Occasional shortness of breath. Denies inspirational chest discomfort. Denies coughing wheezing or hemoptysis. GI: Patient denies nausea, vomiting, diarrhea, abdominal pain, bloody stools. Musculoskeletal: Patient denies joint pain or edema. Denies calf pain or edema. Neurovascular: Patient denies numbness, tingling, weakness in extremities. Denies headache. Endocrine: Denies polyuria and polydipsia. Hematologic: Denies easy bruising. Skin: Denies rash or itching. Past Family Social History Allergies: Coded Allergies: penicillin G (Verified Allergy, Severe, 07/12/17) Past Medical History Traumatic brain injury about a year ago. States she had an open heart surgery as a kid but really does not know more specifics. Hypertension. Bipolar disorder. Tobacco abuse. Denies hyperlipidemia, diabetes, and known CAD. Past Surgical History Repair of fractured clavicle. . Tonsillectomy. Reported Medications Reported Meds & Active Scripts Active Propranolol (Propranolol HCl) 60 Mg Tab 60 Mg PO Q12HR Gabapentin 300 Mg Cap 300 Mg PO Q6HR Active Ordered Medications Current Medications Medications (Trade) Dose Ordered Sig/Emanuel Route Start Time Stop Time Status Last Admin (NS Flush) 2 ml UNSCH PRN IVF 07/12/17 11:30 6/6/18 11:35 (Tylenol) 500 mg Q4H PRN PO 07/12/17 14:30 ([place] 7.5-325 Mg) 1 tab Q4H PRN PO 07/12/17 14:30 (Aspirin) 325 mg DAILY PO 07/13/17 09:00 (Xanax) 0.25 mg Q8H PRN PO 07/12/17 14:30 (Zofran Odt) 4 mg Q4H PRN PO 07/12/17 14:30 (Neurontin) 300 mg Q6HR PO 07/12/17 18:00 (Inderal) 60 mg Q12HR PO 07/12/17 21:00 Family History Denies coronary artery disease and her family was states her brother had valvular heart disease and needed repair. Social History Continues to smoke cigarettes. She smokes about one quarter pack a day for the last year but prior that she smoked between 1-2 packs 6 daily for 20 years. Denies alcohol or illicit drug use. She is . Physical Exam Vital Signs Vital Signs Date Time Temp Pulse Resp B/P (MAP) Pulse Ox O2 Delivery O2 Flow Rate FiO2 07/12/17 15:04 98.6 07/12/17 14:51 50 16 140/95 (110) 99 07/12/17 14:18 55 16 174/84 (114) 100 Room Air 07/12/17 11:28 77 20 160/104 (122) 100 139/74 (95) 07/12/17 11:25 98 Room Air 07/12/17 11:18 75 24 186/114 (138) 98 07/12/17 11:05 98.3 79 18 133/82 (99) 99 Physical Exam GENERAL: This is a well-nourished, well-developed patient, in no apparent distress. Patient speaks in clear complete sentences. Patient is pleasant. HEENT: Head is atraumatic and normocephalic. Neck is supple without lymphadenopathy and trachea is midline. No JVD or carotid bruits. CARDIOVASCULAR: Regular rate and rhythm without murmurs, gallops, or rubs. RESPIRATORY: Clear to auscultation. Breath sounds equal bilaterally. No wheezes , rales, or rhonchi. Chest wall is nontender. No use of accessory muscles. GASTROINTESTINAL: Abdomen is nontender, nondistended. Abdomen soft. No obvious pulsatile mass or bruit. No CVA tenderness. Strong femoral pulses bilaterally. Normal bowel sounds in all quadrants. MUSCULOSKELETAL: Patient is moving upper and lower extremities freely. No calf tenderness or edema, no Homans sign. Strong pulses in upper and lower extremities. NEUROLOGICAL: Patient is alert and oriented. Cranial nerves 2-12 are grossly intact. No focal deficits and speech is clear. SKIN: No rash and turgor is normal. Laboratory Laboratory Tests Test 07/12/17 11:30 White Blood Count 6.7 Red Blood Count 4.64 Hemoglobin 14.0 Hematocrit 41.7 Mean Corpuscular Volume 89.9 Mean Corpuscular Hemoglobin 30.2 Mean Corpuscular Hemoglobin Concent 33.6 Red Cell Distribution Width 13.2 Platelet Count 202 Mean Platelet Volume 10.1 Neutrophils (%) (Auto) 56.8 Lymphocytes (%) (Auto) 34.4 Monocytes (%) (Auto) 7.0 Eosinophils (%) (Auto) 1.4 Basophils (%) (Auto) 0.4 Neutrophils # (Auto) 3.8 Lymphocytes # (Auto) 2.3 Monocytes # (Auto) 0.5 Eosinophils # (Auto) 0.1 Basophils # (Auto) 0.0 CBC Comment DIFF FINAL Differential Comment Prothrombin Time 11.4 Prothromb Time International Ratio 1.1 Activated Partial Thromboplast Time 25.4 Blood Urea Nitrogen 7 Creatinine 1.02 Random Glucose 78 Total Protein 7.4 Albumin 3.8 Calcium Level 9.2 Magnesium Level 2.1 Alkaline Phosphatase 111 Aspartate Amino Transf (AST/SGOT) 41 Alanine Aminotransferase (ALT/SGPT) 24 Total Bilirubin 0.4 Sodium Level 138 Potassium Level 4.4 Chloride Level 100 Carbon Dioxide Level 25.7 Anion Gap 12 Estimat Glomerular Filtration Rate 60 Total Creatine Kinase 117 Creatine Kinase MB 1.0 Troponin I LESS THAN 0.02 Lipase 30 Result Diagram: 07/12/17 1130 07/12/17 1130 Imaging Last 24 hours Impressions Chest X-Ray 07/12/17 1121 Signed Impressions: CONCLUSION: 1. No definite acute finding is identified to explain the chest pain. 2. Prominent right paratracheal opacity may represent vascular structures. A c hest CT with IV contrast is currently pending and attention can be paid to this finding on that examination. Chest CT 07/12/17 0000 Signed Impressions: CONCLUSION: There are COPD changes in the tiny left lung base nodule most like ly benign, repeat noncontrast chest CT is suggested in 6 months as a conservati ve follow up. Course Initial EKG is sinus rhythm without significant ST segment depressions or elevations. Caprini VTE Risk Assessment Caprini VTE Risk Assessment: No/Low Risk (score <= 1) Caprini Risk Assessment Model Point Value = 1 Point Value = 2 Point Value = 3 Point Value = 5 Age 41-60 Minor surgery BMI > 25 kg/m2 Swollen legs Varicose veins or History of unexplained or recurrent spontaneous Oral contraceptives or hormone replacement Sepsis (< 1 month) Serious lung disease, including pneumonia (< 1 month) Abnormal pulmonary function Acute myocardial infarction Congestive heart failure (< 1 month) History of inflammatory bowel disease Medical patient at bed rest Age 61-74 Arthroscopic surgery Major open surgery (> 45 min) Laparoscopic surgery (> 45 min) Malignancy Confined to bed (> 72 hours) Immobilizing plaster cast Central venous access Age >= 75 History of VTE Family history of VTE Factor V Leiden Prothrombin [id number] Lupus anticoagulant Anticardiolipin antibodies Elevated serum homocysteine Heparin-induced thrombocytopenia Other congenital or acquired thrombophilia Stroke (< 1 month) Elective arthroplasty Hip, pelvis, or leg fracture Acute spinal cord injury (< 1 month) Prophylaxis Regimen Total Risk Factor Score Risk Level Prophylaxis Regimen 0-1 Low Early ambulation 2 Moderate Order ONE of the following: *Sequential Compression Device (SCD) *Heparin 5000 units SQ BID 3-4 Higher Order ONE of the following medications: *Heparin 5000 units SQ TID *Enoxaparin/Lovenox 40 mg SQ daily (WT < 150 kg, CrCl > 30 mL/min) *Enoxaparin/Lovenox 30 mg SQ daily (WT < 150 kg, CrCl > 10-29 mL/min) *Enoxaparin/Lovenox 30 mg SQ BID (WT < 150 kg, CrCl > 30 mL/min) AND/OR *Sequential Compression Device (SCD) 5 or more Highest Order ONE of the following medications: *Heparin 5000 units SQ TID (Preferred with Epidurals) *Enoxaparin/Lovenox 40 mg SQ daily (WT < 150 kg, CrCl > 30 mL/min) *Enoxaparin/Lovenox 30 mg SQ daily (WT < 150 kg, CrCl > 10-29 mL/min) *Enoxaparin/Lovenox 30 mg SQ BID (WT < 150 kg, CrCl > 30 mL/min) AND *Sequential Compression Device (SCD) Assessment and Plan Assessment and Plan * Chest pain: Patient will continue to have serial cardiac enzymes and EKGs for ruling out purposes. She has been seen by Dr. Ramy Fermin of cardiology in the chest pain center. Patient will have a Lexiscan in the morning if she rules out. Patient will be discharged home if her stress test is nonischemic with instructions to follow-up with PCP. Return to ED for interval issues. * Lung nodule seen on CT: Patient will need outpatient follow-up with repeat CT scan in 6 months. * Hypertension: Continue medication. * Tobacco abuse: Patient has been counseled on the importance of smoking cessation. Patient is stable at this time. She is agreeable to this plan. Rich Peters Jul 12, 2017 15:54
[2017-07-12 17:02] LABS: TROPONIN I LESS THAN 0.02 NG/ML (0.02-0.05)
[2017-07-12 18:35] LABS: TROPONIN I LESS THAN 0.02 NG/ML (0.02-0.05)
[2017-07-12] MEDS: GABAPENTIN 300 MG CAP PO SCH (18:44)
[2017-07-12] MEDS ORDERED: SERO300T PO (18:44)
[2017-07-12] MEDS ORDERED: QUEtiapine FUMARATE 100 MG TAB PO SCH (19:00)
[2017-07-12] MEDS ORDERED: NON-FORMULARY DRUG (Propranolol 60 MG) PO SCH (21:00)
[2017-07-12] MEDS: PROPRANOLOL HCL 20 MG TAB PO SCH (21:24)
[2017-07-13] VITALS (9 sets, daily range): BP systolic 89–128; BP diastolic 52–65; PULSE 44–77; RESP 16–18; TEMP 98.1–98.7; O2SAT 93–100
[2017-07-13] MEDS: GABAPENTIN 300 MG CAP PO SCH ×2 (00:16→05:31)
[2017-07-13] MEDS: PROPRANOLOL HCL 20 MG TAB PO SCH ×2 (09:00→09:21)
[2017-07-13] MEDS ORDERED: ASPIRIN 325 MG TAB PO SCH (09:00)
[2017-07-13] MEDS ORDERED: REGADENOSON INJ 0.4 MG/5 ML SYR ONE (11:16)
--- NOTE | 2017-07-13 11:46 | HHI.DCPOC ---
Discharge Care Plan Diagnosis: (1) Chest pain (2) Hypertension (3) Lung nodule seen on imaging study (4) Tobacco abuse Goals to Promote Your Health YOU WILL NEED TO HAVE OUTPATIENT CT OF THE CHEST IN 6 MONTHS TO REEVALUATE LUNG NODULE THAT WAS SEEN ON CT SCAN, DISCUSS THIS WITH YOUR PRIMARY CARE DOCTOR TO HAVE THIS PERFORMED AND FOLLOWED. * To prevent worsening of your condition and complications * To maintain your health at the optimal level Directions to Meet Your Goals Take your medications as prescribed Follow your dietary instruction Follow activity as directed Keep your appointments as scheduled Take your immunizations and boosters as scheduled If your symptoms worsen call your PCP, if no PCP go to Urgent Care Center or Emergency Room Smoking is Dangerous to Your Health. Avoid second hand smoke Call the 24-hour hour crisis hotline for domestic abuse at Rich Peters Jul 13, 2017 11:45
--- NOTE | 2017-07-13 12:59 | RADRPT ---
EXAM DATE: 07/13/2017 12:41 PM EDT AGE/SEX: 42 years / Female INDICATIONS:Angina. . Right chest pain. CLINICAL DATA: This is the patient's initial encounter. Patient reports that signs and symptoms have been present for 4 - 6 days and indicates a pain score of 6/10. MEDICAL/SURGICAL HISTORY: Hypertension. Smoker. Tonsillectomy. section. Aortic arch repair. COMPARISON: [facility] [place], CT THORAX W CONTRAST, 07/12/2017. . DOSE: 8.1 mCi Tc 99m Myoview at rest 27.3 mCi [id number] at stress 0.4 mg Lexiscan STRESS SYMPTOMS: Weird feeling. EJECTION FRACTION: 61 % TECHNIQUE: The patient underwent pharmacologic stress with infusion of prescribed dose. Continuous ECG tracing was monitored during stress. Gated SPECT imaging was performed after stress and conventi onal SPECT imaging was performed at rest. The examination was performed on a SPECT/CT scanner, both attenuation and non-corrected datasets were reviewed. FINDINGS: Distribution: The maximum perfused segment at stress is in the anterior wall. Perfusion Study: The pattern of perfusion at stress is within normal limits. Gated Study: There are intact wall motion and wall thickening without hypokinetic or dyskinetic segm ents. The ejection fraction is calculated at 61%. RISK CATEGORY: Low (<1% Annual Motality Rate) CONCLUSION: No areas of ischemia are seen. Electronically signed by: Jenaro Elizalde MD 07/13/2017 12:58 PM EDT
--- NOTE | 2017-07-13 14:29 | EKG ---
Date Performed: 07/12/2017 Time Performed: 17:55:28 PTAGE: 42 years EKG: SINUS BRADYCARDIA WITH SINUS ARRHYTHMIA BORDERLINE ECG NO SIG CHANGE PREVIOUS TRACING : 07/12/2017 15.13 DOCTOR: Sylvester Castillo Interpretating Date/Time 07/13/2017 14:28:14
--- NOTE | 2017-07-13 14:30 | EKG ---
Date Performed: 07/12/2017 Time Performed: 10:15:46 PTAGE: 42 years EKG: Sinus rhythm NORMAL ECG INTERPRETATION BASED ON A DEFAULT AGE OF 41 YEARS NO PREVIOUS TRACING DOCTOR: Sylvester Castillo Interpretating Date/Time 07/14/2017 07:14:47
--- NOTE | 2017-07-13 14:30 | EKG ---
Date Performed: 07/12/2017 Time Performed: 15:13:07 PTAGE: 42 years EKG: SINUS BRADYCARDIA BORDERLINE ECG NO SIG CHANGE PREVIOUS TRACING : 07/12/2017 10.15 DOCTOR: Sylvester Castillo Interpretating Date/Time 07/13/2017 14:29:42
--- NOTE | 2017-07-13 14:33 | TR ---
Date Performed: 07/13/2017 Time Performed: 11:11:50 DOCTOR: Sylvester Castillo DRUG LIST: CLINICAL HISTORY: REASON FOR TEST: REASON FOR ENDING: OBSERVATION: CONCLUSION: Lexiscan stress test was performed under standard four minute protocol. Radionuclide was injected one minute prior to ending the test. No electrocardiographic abormalities were present to suggest ischemia. Nuclear imaging and interpretation are pending. COMMENTS:
== END 2017-07-13 14:13 | disposition home or self-care (01) ==
LOC: NEPE 10:57 → NEDA 13:48 → NEPFCDU 15:45
PROVIDERS: ADMIT Internal Medicine Cardiovascular Disease; ATTEND Internal Medicine Cardiovascular Disease
DX: R07.89 Other chest pain (principal); R91.1 Solitary pulmonary nodule; I10 Essential (primary) hypertension; R06.02 Shortness of breath; I20.9 Angina pectoris, unspecified; F17.210 Nicotine dependence, cigarettes, uncomplicated; F31.9 Bipolar disorder, unspecified; Z87.820 Personal history of traumatic brain injury
CPT/HCPCS: 71045; 71260; 78452; 80053; 82550; 82552; 83690; 83735; 84484; 84702; 85025; 85610; 85730; 93005; 93017; 99285; A9502; G0378; J2785; Q9967